=== PATIENT | male | born 1980 | race Asian ===

== ENCOUNTER 2020-10-13 00:06 | Emergency (ER) | payer OTHER ==
[~2020-10-13] VITALS: Ht 175.3 cm; Wt 127.0 kg
[2020-10-13 00:15] VITALS: BP_SYST 150
[2020-10-13] MEDS ORDERED: TRANEXAMIC ACID 1,000 MG/10 ML VIAL IV ONE (00:30)
[2020-10-13] MEDS ORDERED: TRANEXAMIC ACID 1,000 MG/10 ML VIAL ONE (00:37)
[2020-10-13] MEDS ORDERED: SILVER NITRATE APPLICATOR 1 STICK STICK..EA. TP ONE (01:25)
[2020-10-13 01:45] VITALS: BP_SYST 144
== END 2020-10-13 01:45 | disposition home or self-care (01) ==
LOC: SED 00:06
DX: R04.0 Epistaxis (principal); I10 Essential (primary) hypertension
CPT/HCPCS: 99284; 30903; J3490

== ENCOUNTER 2023-03-29 22:04 | Emergency (ER) | payer BC, OTHER ==
[~2023-03-29] VITALS: Ht 177.8 cm; Wt 133.8 kg
[2023-03-29 22:21] VITALS: BP_SYST 128; PULSE 90; RESP 19; TEMP 97.9; O2SAT 98
[2023-03-29 22:52] VITALS: BP_SYST 128; PULSE 90; RESP 19; TEMP 97.9; O2SAT 98
== END 2023-03-29 22:52 | disposition home or self-care (01) ==
LOC: SED 22:04
DX: S61.012A Laceration without foreign body of left thumb without damage to nail, initial encounter (principal); I10 Essential (primary) hypertension; Z79.899 Other long term (current) drug therapy; W26.0XXA Contact with knife, initial encounter; Y93.89 Activity, other specified; Y92.89 Other specified places as the place of occurrence of the external cause; Y99.8 Other external cause status
CPT/HCPCS: 99282